=== PATIENT | female | born 1940 | race Asian ===

== ENCOUNTER 2018-09-09 05:57 | Inpatient (IN) | payer MEDICARE ==
[~2018-09-09] VITALS: Ht 157.5 cm; Wt 56.7 kg
[2018-09-09] VITALS (17 sets, daily range): BP systolic 105–150
[2018-09-09] MEDS ORDERED: NACL 0.9% 1,000 ML IV ONE ×3 (06:15→08:00)
[2018-09-09] MEDS ORDERED: AMLO2.5T2 PO (06:16)
[2018-09-09] MEDS ORDERED: PRED20TA PO (06:18)
[2018-09-09] MEDS ORDERED: LOP600 PO (06:18)
[2018-09-09] MEDS ORDERED: KETOROLAC TROMETHAMINE 30 MG VIAL IVP ONE (06:30)
[2018-09-09 06:53] LABS: BASOPHILS # (AUTO) 0.1 K/uL (0.0-0.2); BASOPHILS % (AUTO) 0.4 % (0.0-2.0); EOSINOPHILS # (AUTO) 0.4 K/uL (0.0-0.4); EOSINOPHILS % (AUTO) 1.4 % (0.0-4.0); HEMATOCRIT 41.2 % (36-48); HEMOGLOBIN 13.8 g/dL (12.0-16.0); LYMPHOCYTES # (AUTO) 0.6 K/uL (1.0-5.5); LYMPHOCYTES % (AUTO) 2.4 % (20.5-51.5); MEAN CORPUSCULAR HEMOGLOBIN 31 pg (27-31); MEAN CORPUSCULAR HGB CONC 33 % (32-36); MEAN CORPUSCULAR VOLUME 93 fL (79.0-98.0); MONOCYTES # (AUTO) 0.1 K/uL (0.0-1.0); MONOCYTES % (AUTO) 0.5 % (1.7-9.3); NEUTROPHILS # (AUTO) 23.9 K/uL (1.8-7.7); NEUTROPHILS % (AUTO) 95.3 % (40.0-70.0); PLATELET COUNT (AUTO) 412 K/uL (130-430); RED BLOOD CELL COUNT(AUTO) 4.44 MIL/uL (4.2-6.2); WHITE BLOOD COUNT (AUTO) 25.1 K/uL (4.8-10.8)
[2018-09-09 07:09] LABS: ANION GAP 16 (5-15); CALCIUM 11.8 mg/dL (8.4-11.0); CHLORIDE 96 mmol/L (98-107); GLUCOSE 308 mg/dL (70-99); POTASSIUM 3.7 mmol/L (3.5-5.1); SODIUM SERUM 136 mmol/L (136-145); UREA NITROGEN, BLOOD 53 mg/dL (8-21)
[2018-09-09 07:12] LABS: PROTHROMBIN TIME 10.6 SECS (9.5-12.5)
[2018-09-09 07:13] LABS: ALANINE AMINOTRANSFERASE 82 U/L (12-78); ALBUMIN 1.9 g/dL (3.4-4.8); ASPARTATE AMINOTRANSFERASE 80 U/L (10-37); TOTAL BILIRUBIN 1.2 mg/dL (0.0-1.0)
[2018-09-09] MEDS ORDERED: PIPERACILLIN/TAZO 3.375 GM in NS 50 ML IV ONE (07:15)
[2018-09-09] MEDS ORDERED: LEVOFLOXACIN 500 MG/D5W 100 ML IV ONE (07:15)
[2018-09-09] MEDS ORDERED: PIPERACILLIN/TAZOBACTAM 3.375 GM/VIAL (ZOSYN) IV ONE (07:19)
[2018-09-09] MEDS ORDERED: ALBUTEROL SULFATE 0.083% 2.5 MG/3 ML VIAL.NEB INH PRN (09:30)
[2018-09-09] MEDS ORDERED: IPRATROPIUM BROM 0.5 MG/2.5 ML VIAL.NEB (ATROVENT) INH PRN (09:30)
[2018-09-09] MEDS ORDERED: ONDANSETRON HCL 4 MG/2 ML VIAL IVP PRN (10:00)
[2018-09-09] MEDS ORDERED: ACETAMINOPHEN 325 MG TABLET PO PRN (10:00)
[2018-09-09] MEDS ORDERED: methylPREDNISolone SOD SUCC/PF 62.5 MG/ML VIAL IVP ONE (10:15)
[2018-09-09] MEDS: cefTRIAXone 1 GM in D5W 50 ML IV SCH (10:47)
[2018-09-09] MEDS: AZITHROMYCIN 500 MG in NS 250 ML IV SCH (11:44)
[2018-09-09] MEDS ORDERED: methylPREDNISolone SOD SUCC/PF 62.5 MG/ML VIAL IVP SCH (14:00)
[2018-09-09] MEDS: NACL 0.9% 1,000 ML IV SCH (14:13)
[2018-09-09] MEDS: ALBUTEROL SULFATE 0.083% 2.5 MG/3 ML VIAL.NEB INH SCH ×2 (14:14→19:31)
[2018-09-09] MEDS: IPRATROPIUM BROM 0.5 MG/2.5 ML VIAL.NEB (ATROVENT) INH SCH ×2 (14:14→19:31)
[2018-09-09] MEDS: OSELTAMIVIR PHOSPHATE 6 MG/1 ML, 60 ML SUSP PO SCH (15:03)
[2018-09-09 17:16] LABS: BILIRUBIN,URINE NEGATIVE (NEGATIVE); BLOOD, URINE 2+ (NEGATIVE); CLARITY/URINE HAZY (CLEAR); COLOR,URINE YELLOW (YELLOW); GLUCOSE,URINE NEGATIVE (NEGATIVE); KETONES,URINE NEGATIVE (NEGATIVE); LEUKOCYTE ESTERASE ,URINE NEGATIVE (NEGATIVE); NITRITE, URINE NEGATIVE (NEGATIVE); PROTEIN URINE 2+ (NEGATIVE); UROBILINOGEN,URINE 0.2 (0.2-1.0)
[2018-09-09 17:40] LABS: BACTERIA,URINE FEW /HPF (None Seen); RBC,URINE 0-3 /HPF (0-3); WBC,URINE 0-3 /HPF (0-3)
[2018-09-09 17:42] LABS: MUCUS,URINE None Seen /LPF (None Seen)
[2018-09-09] MEDS: VANCOMYCIN HCL 1,000 MG in NS 250 ML IV SCH (18:02)
[2018-09-09] MEDS: methylPREDNISolone SOD SUCC 40 MG/ML VIAL IVP SCH (20:07)
[2018-09-09] MEDS: INSULIN REGULAR, HUMAN 100 UNITS/ML, 10 ML VIAL (novoLIN R) SUBCUT PRN (23:17)
[2018-09-10] VITALS (16 sets, daily range): BP systolic 116–160
[2018-09-10] MEDS: IPRATROPIUM BROM 0.5 MG/2.5 ML VIAL.NEB (ATROVENT) INH SCH ×4 (00:12→19:42)
[2018-09-10] MEDS: ALBUTEROL SULFATE 0.083% 2.5 MG/3 ML VIAL.NEB INH SCH ×4 (00:12→19:42)
[2018-09-10] MEDS: NACL 0.9% 1,000 ML IV SCH ×2 (01:17→07:15)
[2018-09-10] MEDS: INSULIN REGULAR, HUMAN 100 UNITS/ML, 10 ML VIAL (novoLIN R) SUBCUT PRN ×4 (05:10→23:51)
[2018-09-10 05:37] LABS: SODIUM SERUM 146 mmol/L (136-145)
[2018-09-10 05:39] LABS: ANION GAP 12 (5-15); CALCIUM 9.3 mg/dL (8.4-11.0); CHLORIDE 110 mmol/L (98-107); CREATININE 1.41 mg/dL (0.55-1.30); GLUCOSE 277 mg/dL (70-99); TOTAL BILIRUBIN 0.3 mg/dL (0.0-1.0); UREA NITROGEN, BLOOD 53 mg/dL (8-21)
[2018-09-10 05:40] LABS: ALANINE AMINOTRANSFERASE 55 U/L (12-78); ALBUMIN 1.2 g/dL (3.4-4.8); ASPARTATE AMINOTRANSFERASE 43 U/L (10-37)
[2018-09-10 05:42] LABS: POTASSIUM 2.9 mmol/L (3.5-5.1)
[2018-09-10 05:48] LABS: HEMATOCRIT 33.5 % (36-48); HEMOGLOBIN 10.9 g/dL (12.0-16.0); MEAN CORPUSCULAR HEMOGLOBIN 30 pg (27-31); MEAN CORPUSCULAR HGB CONC 33 % (32-36); MEAN CORPUSCULAR VOLUME 93 fL (79.0-98.0); PLATELET COUNT (AUTO) 307 K/uL (130-430); RED BLOOD CELL COUNT(AUTO) 3.58 MIL/uL (4.2-6.2); RED CELL DISTRIBUTION WIDTH 12.8 % (9.0-15.0)
[2018-09-10 06:02] LABS: WHITE BLOOD COUNT (AUTO) 33.2 K/uL (4.8-10.8)
[2018-09-10] MEDS: KCL 20 mEq in 100 mL (PREMIX) 100 ML IV SCH ×2 (06:34→08:57)
[2018-09-10 06:59] LABS: BAND % (MANUAL) 18 % (0-6); BASOPHILS % (MANUAL) 0 % (0-2); EOSINOPHILS % (MANUAL) 0 % (0-7); LYMPHOCYTES % (MANUAL) 3 % (20-46); MONOCYTES % (MANUAL) 2 % (0-11)
[2018-09-10] MEDS: methylPREDNISolone SOD SUCC 40 MG/ML VIAL IVP SCH ×2 (08:56→21:22)
[2018-09-10] MEDS: cefTRIAXone 1 GM in D5W 50 ML IV SCH (08:57)
[2018-09-10] MEDS: AZITHROMYCIN 500 MG in NS 250 ML IV SCH (10:07)
[2018-09-10] MEDS: POTASSIUM CHLORIDE 10 MEQ in 0.45% NACL 1,000 ML IV SCH ×2 (11:15→13:06)
[2018-09-10] MEDS ORDERED: POTASSIUM CHLORIDE 40 MEQ, LIDOCAINE JECT 2% PF 100 MG 75 MG in NS 250 ML IV ONE (11:15)
[2018-09-10] MEDS: OSELTAMIVIR PHOSPHATE 6 MG/1 ML, 60 ML SUSP PO SCH (13:06)
[2018-09-11] MEDS: IPRATROPIUM BROM 0.5 MG/2.5 ML VIAL.NEB (ATROVENT) INH SCH ×4 (01:48→19:20)
[2018-09-11] MEDS: ALBUTEROL SULFATE 0.083% 2.5 MG/3 ML VIAL.NEB INH SCH ×4 (01:48→19:20)
[2018-09-11] MEDS: POTASSIUM CHLORIDE 10 MEQ in 0.45% NACL 1,000 ML IV SCH (03:00)
[2018-09-11 05:30] VITALS: BP_SYST 114
[2018-09-11] MEDS: INSULIN REGULAR, HUMAN 100 UNITS/ML, 10 ML VIAL (novoLIN R) SUBCUT PRN ×3 (05:49→17:39)
[2018-09-11 07:30] VITALS: BP_SYST 123
[2018-09-11 07:41] LABS: ANION GAP 14 (5-15); CHLORIDE 115 mmol/L (98-107); GLUCOSE 256 mg/dL (70-99); POTASSIUM 3.6 mmol/L (3.5-5.1); SODIUM SERUM 149 mmol/L (136-145); UREA NITROGEN, BLOOD 56 mg/dL (8-21)
[2018-09-11 08:00] LABS: BASOPHILS % (AUTO) 0.1 % (0.0-2.0); EOSINOPHILS % (AUTO) 0.1 % (0.0-4.0); HEMOGLOBIN 9.7 g/dL (12.0-16.0); LYMPHOCYTES # (AUTO) 0.7 K/uL (1.0-5.5); MEAN CORPUSCULAR HEMOGLOBIN 31 pg (27-31); MEAN CORPUSCULAR HGB CONC 34 % (32-36); MEAN CORPUSCULAR VOLUME 93 fL (79.0-98.0); MONOCYTES # (AUTO) 0.1 K/uL (0.0-1.0); MONOCYTES % (AUTO) 0.6 % (1.7-9.3); NEUTROPHILS # (AUTO) 17.5 K/uL (1.8-7.7); NEUTROPHILS % (AUTO) 95.5 % (40.0-70.0); PLATELET COUNT (AUTO) 265 K/uL (130-430); RED BLOOD CELL COUNT(AUTO) 3.13 MIL/uL (4.2-6.2); RED CELL DISTRIBUTION WIDTH 13.3 % (9.0-15.0); WHITE BLOOD COUNT (AUTO) 18.3 K/uL (4.8-10.8)
[2018-09-11 08:06] LABS: LYMPHOCYTES % (AUTO) 3.7 % (20.5-51.5)
[2018-09-11] MEDS: methylPREDNISolone SOD SUCC 40 MG/ML VIAL IVP SCH (08:27)
[2018-09-11] MEDS: cefTRIAXone 1 GM in D5W 50 ML IV SCH (08:28)
[2018-09-11] MEDS: AZITHROMYCIN 500 MG in NS 250 ML IV SCH (09:44)
[2018-09-11] MEDS ORDERED: D5W 1,000 ML IV SCH (09:45)
[2018-09-11 12:02] VITALS: BP_SYST 127
[2018-09-11 16:12] VITALS: BP_SYST 132
[2018-09-11] MEDS: VANCOMYCIN HCL 1,000 MG in NS 250 ML IV SCH (17:36)
[2018-09-11 20:19] VITALS: BP_SYST 135
[2018-09-11 23:42] VITALS: BP_SYST 145
[2018-09-12] MEDS: ALBUTEROL SULFATE 0.083% 2.5 MG/3 ML VIAL.NEB INH SCH ×4 (00:50→20:32)
[2018-09-12] MEDS: IPRATROPIUM BROM 0.5 MG/2.5 ML VIAL.NEB (ATROVENT) INH SCH ×4 (00:50→20:32)
[2018-09-12] MEDS: INSULIN REGULAR, HUMAN 100 UNITS/ML, 10 ML VIAL (novoLIN R) SUBCUT PRN ×5 (01:09→23:40)
[2018-09-12] MEDS: LR 1,000 ML IV SCH ×2 (01:43→18:16)
[2018-09-12 07:21] LABS: ANION GAP 8 (5-15); CALCIUM 9.2 mg/dL (8.4-11.0); CHLORIDE 115 mmol/L (98-107); CREATININE 1.07 mg/dL (0.55-1.30); GLUCOSE 270 mg/dL (70-99); POTASSIUM 3.9 mmol/L (3.5-5.1); SODIUM SERUM 147 mmol/L (136-145); UREA NITROGEN, BLOOD 54 mg/dL (8-21)
[2018-09-12 07:39] LABS: BASOPHILS % (AUTO) 0.2 % (0.0-2.0); EOSINOPHILS % (AUTO) 0.1 % (0.0-4.0); HEMATOCRIT 30.6 % (36-48); HEMOGLOBIN 10.2 g/dL (12.0-16.0); LYMPHOCYTES # (AUTO) 0.8 K/uL (1.0-5.5); LYMPHOCYTES % (AUTO) 4.7 % (20.5-51.5); MEAN CORPUSCULAR HEMOGLOBIN 31 pg (27-31); MEAN CORPUSCULAR HGB CONC 33 % (32-36); MEAN CORPUSCULAR VOLUME 92 fL (79.0-98.0); MONOCYTES # (AUTO) 0.1 K/uL (0.0-1.0); MONOCYTES % (AUTO) 0.4 % (1.7-9.3); NEUTROPHILS # (AUTO) 15.8 K/uL (1.8-7.7); NEUTROPHILS % (AUTO) 94.6 % (40.0-70.0); PLATELET COUNT (AUTO) 308 K/uL (130-430); RED BLOOD CELL COUNT(AUTO) 3.34 MIL/uL (4.2-6.2); RED CELL DISTRIBUTION WIDTH 13.5 % (9.0-15.0); WHITE BLOOD COUNT (AUTO) 16.6 K/uL (4.8-10.8)
[2018-09-12 08:00] VITALS: BP_SYST 142
[2018-09-12] MEDS: cefTRIAXone 1 GM in D5W 50 ML IV SCH (08:40)
[2018-09-12] MEDS: AZITHROMYCIN 500 MG in NS 250 ML IV SCH (09:19)
[2018-09-12 12:02] VITALS: BP_SYST 124
[2018-09-12] MEDS ORDERED: ENOXAPARIN SODIUM 40 MG/0.4 ML SYRINGE SUBCUT ONE (14:30)
[2018-09-12] MEDS ORDERED: FUROSEMIDE 20 MG/2 ML VIAL IVP ONE (14:30)
[2018-09-12 16:02] VITALS: BP_SYST 143
[2018-09-12] MEDS: VANCOMYCIN HCL 1,250 MG in NS 250 ML IV SCH (19:24)
[2018-09-12 21:23] VITALS: BP_SYST 136
[2018-09-13 00:01] VITALS: BP_SYST 152
[2018-09-13] MEDS: ALBUTEROL SULFATE 0.083% 2.5 MG/3 ML VIAL.NEB INH SCH ×4 (01:00→21:24)
[2018-09-13] MEDS: IPRATROPIUM BROM 0.5 MG/2.5 ML VIAL.NEB (ATROVENT) INH SCH ×4 (01:00→21:24)
[2018-09-13] MEDS: INSULIN REGULAR, HUMAN 100 UNITS/ML, 10 ML VIAL (novoLIN R) SUBCUT PRN ×3 (06:02→18:02)
[2018-09-13 07:26] LABS: BASOPHILS % (AUTO) 0.2 % (0.0-2.0); EOSINOPHILS % (AUTO) 0.2 % (0.0-4.0); HEMATOCRIT 30.7 % (36-48); HEMOGLOBIN 10.2 g/dL (12.0-16.0); LYMPHOCYTES % (AUTO) 7.3 % (20.5-51.5); MEAN CORPUSCULAR HEMOGLOBIN 31 pg (27-31); MEAN CORPUSCULAR HGB CONC 33 % (32-36); MEAN CORPUSCULAR VOLUME 92 fL (79.0-98.0); MONOCYTES # (AUTO) 0.1 K/uL (0.0-1.0); MONOCYTES % (AUTO) 0.6 % (1.7-9.3); NEUTROPHILS % (AUTO) 91.7 % (40.0-70.0); PLATELET COUNT (AUTO) 345 K/uL (130-430); RED BLOOD CELL COUNT(AUTO) 3.35 MIL/uL (4.2-6.2); WHITE BLOOD COUNT (AUTO) 14.1 K/uL (4.8-10.8)
[2018-09-13 07:32] LABS: ANION GAP 6 (5-15); CALCIUM 8.4 mg/dL (8.4-11.0); CHLORIDE 107 mmol/L (98-107); CREATININE 0.75 mg/dL (0.55-1.30); GLUCOSE 165 mg/dL (70-99); POTASSIUM 4.2 mmol/L (3.5-5.1); SODIUM SERUM 139 mmol/L (136-145); UREA NITROGEN, BLOOD 38 mg/dL (8-21)
[2018-09-13 08:00] VITALS: BP_SYST 146
[2018-09-13] MEDS: cefTRIAXone 1 GM in D5W 50 ML IV SCH (09:46)
[2018-09-13] MEDS: ENOXAPARIN SODIUM 40 MG/0.4 ML SYRINGE SUBCUT SCH (09:48)
[2018-09-13] MEDS: AZITHROMYCIN 500 MG in NS 250 ML IV SCH (09:56)
[2018-09-13 11:33] VITALS: BP_SYST 121
[2018-09-13 16:13] VITALS: BP_SYST 123
[2018-09-13 19:25] VITALS: BP_SYST 140
[2018-09-14 00:07] VITALS: BP_SYST 144
[2018-09-14] MEDS: INSULIN REGULAR, HUMAN 100 UNITS/ML, 10 ML VIAL (novoLIN R) SUBCUT PRN ×4 (00:35→23:58)
[2018-09-14] MEDS: IPRATROPIUM BROM 0.5 MG/2.5 ML VIAL.NEB (ATROVENT) INH SCH ×4 (01:51→19:42)
[2018-09-14] MEDS: ALBUTEROL SULFATE 0.083% 2.5 MG/3 ML VIAL.NEB INH SCH ×4 (01:52→19:42)
[2018-09-14] MEDS: LR 1,000 ML IV SCH ×2 (05:45→21:25)
[2018-09-14] MEDS: VANCOMYCIN HCL 1,250 MG in NS 250 ML IV SCH (06:18)
[2018-09-14 08:11] VITALS: BP_SYST 141
[2018-09-14] MEDS: cefTRIAXone 1 GM in D5W 50 ML IV SCH (08:51)
[2018-09-14] MEDS: ENOXAPARIN SODIUM 40 MG/0.4 ML SYRINGE SUBCUT SCH (08:55)
[2018-09-14 12:02] VITALS: BP_SYST 148
[2018-09-14 15:07] VITALS: BP_SYST 145
[2018-09-14 20:08] VITALS: BP_SYST 143
[2018-09-15 01:12] VITALS: BP_SYST 123
[2018-09-15] MEDS: ALBUTEROL SULFATE 0.083% 2.5 MG/3 ML VIAL.NEB INH SCH ×3 (02:15→16:15)
[2018-09-15] MEDS: IPRATROPIUM BROM 0.5 MG/2.5 ML VIAL.NEB (ATROVENT) INH SCH ×3 (02:16→16:15)
[2018-09-15] MEDS: INSULIN REGULAR, HUMAN 100 UNITS/ML, 10 ML VIAL (novoLIN R) SUBCUT PRN ×3 (06:51→18:22)
[2018-09-15 07:25] LABS: ANION GAP 5 (5-15); CALCIUM 8.5 mg/dL (8.4-11.0); CHLORIDE 102 mmol/L (98-107); CREATININE 0.53 mg/dL (0.55-1.30); GLUCOSE 164 mg/dL (70-99); POTASSIUM 3.4 mmol/L (3.5-5.1); SODIUM SERUM 134 mmol/L (136-145); UREA NITROGEN, BLOOD 24 mg/dL (8-21)
[2018-09-15 08:16] VITALS: BP_SYST 140
[2018-09-15 08:16] LABS: WHITE BLOOD COUNT (AUTO) 12.2 K/uL (4.8-10.8)
[2018-09-15 08:17] LABS: EOSINOPHILS % (AUTO) 0.9 % (0.0-4.0); HEMATOCRIT 29.5 % (36-48); HEMOGLOBIN 9.9 g/dL (12.0-16.0); LYMPHOCYTES % (AUTO) 7.2 % (20.5-51.5); MEAN CORPUSCULAR HEMOGLOBIN 31 pg (27-31); MEAN CORPUSCULAR HGB CONC 34 % (32-36); MEAN CORPUSCULAR VOLUME 93 fL (79.0-98.0); MONOCYTES % (AUTO) 1.8 % (1.7-9.3); PLATELET COUNT (AUTO) 346 K/uL (130-430); RED BLOOD CELL COUNT(AUTO) 3.19 MIL/uL (4.2-6.2); RED CELL DISTRIBUTION WIDTH 12.7 % (9.0-15.0)
[2018-09-15 08:18] LABS: BASOPHILS % (AUTO) 0.1 % (0.0-2.0); EOSINOPHILS # (AUTO) 0.1 K/uL (0.0-0.4); LYMPHOCYTES # (AUTO) 0.9 K/uL (1.0-5.5); MONOCYTES # (AUTO) 0.2 K/uL (0.0-1.0)
[2018-09-15] MEDS ORDERED: cefTRIAXone 1 GM in D5W 50 ML IV SCH (09:30)
[2018-09-15] MEDS: ENOXAPARIN SODIUM 40 MG/0.4 ML SYRINGE SUBCUT SCH (09:37)
[2018-09-15] MEDS ORDERED: ASPIRIN 81 MG TAB.CHEW PO ONE (10:45)
[2018-09-15] MEDS ORDERED: POTASSIUM CHLORIDE 20 MEQ TAB.PRT.SR PO ONE (10:45)
[2018-09-15 11:26] VITALS: BP_SYST 139
[2018-09-15 15:35] VITALS: BP_SYST 124
[2018-09-15 16:39] VITALS: BP_SYST 124
[2018-09-15 17:28] VITALS: BP_SYST 139
[2018-09-16] MEDS ORDERED: ASPIRIN 81 MG TAB.CHEW PO SCH (09:00)
== END 2018-09-15 19:29 | disposition short-term general hospital (02) | DRG 871 ==
LOC: SED 05:57 → SIC 08:55 → STU 09-10 13:26
PROVIDERS: ADMIT Internal Medicine Hospice and Palliative Medicine; ATTEND Internal Medicine Hospice and Palliative Medicine
PROC: 02HV33Z Insertion of Infusion Device into Superior Vena Cava, Percutaneous Approach (ICD-10-PCS; principal; 2018-09-10)
PROC: B548ZZA Ultrasonography of Superior Vena Cava, Guidance (ICD-10-PCS; 2018-09-10)
DX: A41.9 Sepsis, unspecified organism (principal); J18.9 Pneumonia, unspecified organism; J96.01 Acute respiratory failure with hypoxia; I63.9 Cerebral infarction, unspecified; J44.0 Chronic obstructive pulmonary disease with (acute) lower respiratory infection; N17.9 Acute kidney failure, unspecified; E87.4 Mixed disorder of acid-base balance; J44.1 Chronic obstructive pulmonary disease with (acute) exacerbation; E87.0 Hyperosmolality and hypernatremia; E78.5 Hyperlipidemia, unspecified; E83.52 Hypercalcemia; F17.210 Nicotine dependence, cigarettes, uncomplicated; I10 Essential (primary) hypertension; Z85.048 Personal history of other malignant neoplasm of rectum, rectosigmoid junction, and anus; Z93.3 Colostomy status; Z85.43 Personal history of malignant neoplasm of ovary; E86.0 Dehydration; B95.3 Streptococcus pneumoniae as the cause of diseases classified elsewhere; G83.14 Monoplegia of lower limb affecting left nondominant side
CPT/HCPCS: 36415; 36600; 70450-TC; 70551; 71045; 72148; 80048; 80053; 80202-TC; 81000-TC; 82009-TC; 82803-TC; 82962; 83605; 83880; 84484; 85007; 85025; 85027; 85379; 85610-TC; 85730-TC; 86710; 87040-TC; 87081; 87086; 87186-TC; 93005; 94640; 94760; 96361; 96365; 96367; 96375; 97112-GP; 97530-GP; 99291; C1751; G0378; G9035; J0456; J0696; J1030; J1650; J1815; J1885; J1940; J1956; J2543; J2930; J3370; J3480; J7030; J7050; J7060; J7120; J7613